=== PATIENT | female | born 2000 | race Caucasian/White ===

== ENCOUNTER 2022-03-05 10:32 | Emergency (ER) | payer BC ==
[~2022-03-05] VITALS: Ht 190.5 cm; Wt 68.0 kg
== END 2022-03-05 13:54 | disposition home or self-care (01) ==
LOC: ED 10:32
DX: O20.0 Threatened abortion (principal); Z88.0 Allergy status to penicillin; Z3A.01 Less than 8 weeks gestation of pregnancy
CPT/HCPCS: 36415; 80053; 81001; 84702; 85025; 86900; 86901; 99284-25